=== PATIENT | female | born 1935 | race Caucasian/White ===

== ENCOUNTER 2018-01-26 09:39 | Outpatient (CLI) | payer OTHER ==
[~2018-01-26 09:39] MED LIST: ARICEPT10 MG; CELEBREX200MG; GABAPENTIN800 MG
== END 2018-01-26 09:43 | disposition home or self-care (01) ==
LOC: LAB 09:39
DX: D64.89 Other specified anemias (principal); N39.0 Urinary tract infection, site not specified; E55.9 Vitamin D deficiency, unspecified; E03.8 Other specified hypothyroidism; E78.2 Mixed hyperlipidemia; E11.9 Type 2 diabetes mellitus without complications

== ENCOUNTER 2018-02-02 00:50 | Inpatient (IN) | payer OTHER ==
[~2018-02-02] VITALS: Ht 162.6 cm; Wt 56.2 kg
== END 2018-02-07 16:13 | disposition home or self-care (01) | DRG 392 ==
LOC: ER 00:50 → MEDI 16:08 → SEC-K 16:08 → MEDI 17:24
PROC: BW25Y0Z Computerized Tomography (CT Scan) of Chest, Abdomen and Pelvis using Other Contrast, Unenhanced and Enhanced (ICD-10-PCS; 2018-02-02)
PROC: 0DB48ZX Excision of Esophagogastric Junction, Via Natural or Artificial Opening Endoscopic, Diagnostic (ICD-10-PCS; principal; 2018-02-04)
DX: K29.00 Acute gastritis without bleeding (principal); N39.0 Urinary tract infection, site not specified; E87.1 Hypo-osmolality and hyponatremia; K22.70 Barrett's esophagus without dysplasia; E86.0 Dehydration; E87.6 Hypokalemia; K52.89 Other specified noninfective gastroenteritis and colitis; I25.10 Atherosclerotic heart disease of native coronary artery without angina pectoris; F03.90 Unspecified dementia, unspecified severity, without behavioral disturbance, psychotic disturbance, mood disturbance, and anxiety; M15.0 Primary generalized (osteo)arthritis; K44.9 Diaphragmatic hernia without obstruction or gangrene; K21.9 Gastro-esophageal reflux disease without esophagitis; I11.9 Hypertensive heart disease without heart failure; B95.2 Enterococcus as the cause of diseases classified elsewhere; K20.8 Other esophagitis

== ENCOUNTER 2018-09-30 15:03 | Outpatient (CLI) | payer OTHER | END 2018-09-30 15:09 | disposition home or self-care (01) | LOC: LAB 15:03 | DX: J11.89 Influenza due to unidentified influenza virus with other manifestations (principal); J11.1 Influenza due to unidentified influenza virus with other respiratory manifestations; J06.9 Acute upper respiratory infection, unspecified ==

== ENCOUNTER 2019-10-20 09:40 | Outpatient (CLI) | payer OTHER | END 2019-10-20 10:00 | disposition home or self-care (01) | LOC: NUCLEAR 09:40 | DX: I11.9 Hypertensive heart disease without heart failure (principal); I25.10 Atherosclerotic heart disease of native coronary artery without angina pectoris; I34.1 Nonrheumatic mitral (valve) prolapse ==

== ENCOUNTER 2025-01-01 13:03 | Inpatient (IN) | payer OTHER ==
[~2025-01-01] VITALS: Ht 157.5 cm; Wt 45.4 kg
[2025-01-01] MEDS ORDERED: LANSOPRAZOL-AM1 EACH (13:59)
[2025-01-01] MEDS ORDERED: APETIGEN P12.5 MG/15 (13:59)
[2025-01-01] MEDS ORDERED: ATACAND4 MG (13:59)
[2025-01-01] MEDS ORDERED: LASIX20 MG (13:59)
[2025-01-01] MEDS ORDERED: LEVALBUTEROL HCL 1.25 MG/3 ML SOLUTION IH ONE ×2 (14:00→14:17)
[2025-01-01] MEDS ORDERED: ALPRAZOLAM OD0.25 MG (14:00)
[2025-01-01] MEDS ORDERED: IPRATROPIUM BROMIDE 0.5 MG/2.5 ML AMPUL.NEB IH ONE ×2 (14:00→14:17)
[2025-01-01] MEDS ORDERED: FUROsemide 20 MG/2 ML VIAL IV ONE (14:00)
[2025-01-01] MEDS ORDERED: ESCITALOPRA5 MG/5 ML (14:00)
[2025-01-01] MEDS ORDERED: HORIZANT300 MG (14:00)
[2025-01-01] MEDS ORDERED: FAMOtidine 10 MG/ML (4ML VIAL) IV ONE (14:00)
[2025-01-01] MEDS ORDERED: 0.9 % SODIUM CHLORIDE 1,000 ML IV ONE (14:00)
[2025-01-01] MEDS ORDERED: PIPERACILLIN/TAZOBACTAM SODIUM 3.375 GM VIAL IV ONE ×2 (14:00→14:22)
[2025-01-01] MEDS ORDERED: FUROsemide 20 MG/2 ML VIAL ONE (14:21)
[2025-01-01] MEDS ORDERED: FAMOTIDINE/PF 20 MG/2 ML VIAL ONE (14:22)
[2025-01-01 15:09] LABS: ABG PH 7.428 (7.35-7.45); ABG PO2 204.3 mmHg (80-100); ABG pCO2 33.8 mmHg (35-45); BASE EXCESS -1.7 mmol/l; SaO2 99.7 %
[2025-01-01 15:10] LABS: BICARBONATE 21.9 mmol/l (23-25); Tco2 22.9 mmol/l; allen test NO SATISFACTORY; mode VENTURY MASK; o2 50 %; puncture site RADIAL RIGHT
[2025-01-01 15:32] LABS: HEMATOCRIT 28.6 % (34.1-44.9); HEMOGLOBIN 9.6 g/dL (11.2-15.7); LYMPH # 1.48 (1.18-3.74); LYMPH % 26.6 % (19.3-53.1); MEAN CORPUSCULAR HEMOGLOBIN 30.5 pg (25.6-32.2); MONO # 0.53 (0.24-0.82); MONO % 9.5 % (4.7-12.5); NEUT # 3.55 (1.56-6.13); NEUT % 63.7 % (34.0-71.1); PLATELET COUNT 281 K/uL (163-369); RED BLOOD COUNT 3.15 M/uL (3.93-5.22)
[2025-01-01 15:52] LABS: INR 1.06; PARTIAL THROMBOPLASTIN TIME 33.5 SECONDS (22.0-34.0); PROTHROMBIN TIME 11.5 SECONDS (9.0-11.5)
[2025-01-01 15:57] LABS: ALBUMIN 2.4 gm/dL (3.4-5.0); BILIRUBIN TOTAL 0.35 mg/dL (0.3-1.2); CALCIUM 7.9 mg/dL (8.5-10.1); CREATININE SERUM 1.28 mg/dL (0.55-1.02); GFR 39.35; GLOBULINA 3.7 G/DL (2.4-3.5); POTASSIUM 3.66 mEq/L (3.5-5.1); TOTAL PROTEIN 6.1 gm/dL (6.4-8.2)
[2025-01-01 17:40] LABS: URINE APPEARANCE Clear; URINE BILIRRUBIN Negative (NEGATIVE); URINE BLOOD Negative; URINE COLOR Yellow; URINE GLUCOSE Negative (NEGATIVE); URINE KETONE Negative (NEGATIVE); URINE LEUKOCYTE Negative; URINE NITRATE Negative; URINE PROTEIN 30 (NEGATIVE)
[2025-01-01 17:44] LABS: URINE BACTERIA 80.7 uL (0.0-1933); URINE EPITHELIAL CELLS 12.6 uL (0.0-38.8); URINE WBC 3.1 uL (0.0-23.2)
[2025-01-01 17:55] LABS: URINE CAST 0.44 uL (0.0-1.40); URINE RBC 1.7 uL (0.0-20.8)
[2025-01-01] MEDS ORDERED: ACETAMINOPHEN 325 MG TABLET PO PRN (18:45)
[2025-01-01] MEDS ORDERED: IPRATROPIUM BROMIDE 0.5 MG/2.5 ML AMPUL.NEB IH SCH (21:00)
[2025-01-01] MEDS ORDERED: LEVALBUTEROL HCL 1.25 MG/3 ML SOLUTION IH SCH (21:00)
[2025-01-01] MEDS ORDERED: FUROsemide 20 MG/2 ML VIAL IV SCH (21:00)
[2025-01-01 21:02] LABS: COVID-19 AG NEGATIVE (NEGATIVE)
[2025-01-01 21:22] LABS: INFLUENZA A AG NEGATIVE (NEGATIVE)
[2025-01-01 22:48] VITALS: O2SAT 98
[2025-01-01] MEDS ORDERED: 0.9 % SODIUM CHLORIDE 1,000 ML IV SCH (23:00)
[2025-01-02] VITALS (7 sets, daily range): BP systolic 79–93; BP diastolic 54–60; O2SAT 75–100
[2025-01-02] MEDS ORDERED: GUAIFENESIN 200 MG/10 ML BLIST.PACK PO SCH
[2025-01-02] MEDS ORDERED: AZITHROMYCIN 500 MG VIAL IV ONE (08:41)
[2025-01-02] MEDS ORDERED: CEFTRIAXONE SODIUM 2,000 MG in 0.9 % SODIUM CHLORIDE 100 ML IV SCH (09:00)
[2025-01-02] MEDS ORDERED: AZITHROMYCIN 500 MG VIAL IV SCH (09:00)
[2025-01-02] MEDS ORDERED: PANTOPRAZOLE SODIUM 40 MG/VIAL VIAL IV SCH (12:00)
[2025-01-02] MEDS ORDERED: LACTOBACILLUS ACIDOPHILUS 1 CAP CAP PO SCH (17:00)
[2025-01-02] MEDS ORDERED: FUROsemide 20 MG/2 ML VIAL IV SCH (17:00)
[2025-01-03 00:46] VITALS: BP 93/61; O2SAT 95
[2025-01-03] MEDS ORDERED: AZITHROMYCIN 500 MG VIAL IV ONE (08:15)
[2025-01-03 08:18] VITALS: BP 112/70; O2SAT 96
[2025-01-03] MEDS ORDERED: FUROsemide 20 MG/2 ML VIAL IV SCH (10:11)
[2025-01-03 16:24] VITALS: BP 99/57
[2025-01-03] MEDS ORDERED: TEMAZEPAM 15 MG CAPSULE PO SCH (21:00)
[2025-01-04 01:29] VITALS: BP 101/56
[2025-01-04 07:30] VITALS: BP 92/61; O2SAT 98
== END 2025-01-04 13:44 | disposition home or self-care (01) | DRG 293 ==
LOC: ER 13:03 → MEDI 18:38
PROVIDERS: General Practice; ADMIT Internal Medicine; ATTEND Internal Medicine
PROC: BW24ZZZ Computerized Tomography (CT Scan) of Chest and Abdomen (ICD-10-PCS; principal; 2025-01-01)
PROC: B24BZZZ Ultrasonography of Heart with Aorta (ICD-10-PCS; 2025-01-02)
PROC: 4A12X4Z Monitoring of Cardiac Electrical Activity, External Approach (ICD-10-PCS; 2025-01-02)
DX: I11.0 Hypertensive heart disease with heart failure (principal); I50.20 Unspecified systolic (congestive) heart failure; R09.02 Hypoxemia; F03.90 Unspecified dementia, unspecified severity, without behavioral disturbance, psychotic disturbance, mood disturbance, and anxiety; I35.0 Nonrheumatic aortic (valve) stenosis; I25.10 Atherosclerotic heart disease of native coronary artery without angina pectoris; J40 Bronchitis, not specified as acute or chronic